=== PATIENT | male | born 1940 | race Caucasian/White ===

== ENCOUNTER → 2017-05-06 | Outpatient (REF) ==
[~2017-05-06] MED LIST: AMBIEN5 MG PO; ASPIRIN E.C. 8181 MG PO; ATENOLOL PO; ATENOLOL50 MG PO; BUPROPRION PO; CRESTOR PO; NORCO 325 MG-51 TAB PO; OSTEO-BI-FLEX 21 TAB PO; PROMETHAZINE12.5 M5 PO; SAW PALMETTO450 MG PO; ULTRAM 50MG TAB50 MG PO
[2017-05-06 19:51] LABS: THYROID STIMULATING HORMONE 4.26 uIU/mL (0.465-4.680)
[2017-05-06 21:45] LABS: PSA-TOTAL 2.78 ng/mL (0-4)
== END ==
LOC: ZLAB.WCH 18:17
PROVIDERS: Internal Medicine
DX: Z01.89 Encounter for other specified special examinations (principal)
CPT/HCPCS: G0103

== ENCOUNTER → 2017-10-28 | Outpatient (REF) | LOC: ZLAB.WCH 18:03 | DX: Z01.89 Encounter for other specified special examinations (principal) ==

== ENCOUNTER → 2017-11-28 | Outpatient (REF) ==
[2017-11-28 18:43] LABS: IRON,SERUM 11 ug/dL (35-150)
[2017-11-28 18:52] LABS: TOTAL IRON BINDING CAPACITY 258 ug/dL (261-462)
[2017-11-28 19:18] LABS: FERRITIN 57 ng/mL (18-464)
== END ==
LOC: ZLAB.WCH 18:20
PROVIDERS: Internal Medicine
DX: Z01.89 Encounter for other specified special examinations (principal)

== ENCOUNTER → 2017-12-29 | Outpatient (REF) ==
[2017-12-29 19:01] LABS: IRON,SERUM 52 ug/dL (35-150)
[2017-12-29 19:11] LABS: TOTAL IRON BINDING CAPACITY 216 ug/dL (261-462)
[2017-12-29 19:37] LABS: FERRITIN 53 ng/mL (18-464)
== END ==
LOC: ZLAB.WCH 18:30
PROVIDERS: Internal Medicine
DX: Z01.89 Encounter for other specified special examinations (principal)

== ENCOUNTER → 2018-02-27 | Outpatient (REF) | LOC: ZLAB.WCH 17:58 | DX: Z01.89 Encounter for other specified special examinations (principal) ==

== ENCOUNTER → 2018-04-27 | Outpatient (CLI) | payer MEDICARE | LOC: COL.RAD 09:04 | DX: R93.0 Abnormal findings on diagnostic imaging of skull and head, not elsewhere classified (principal); M46.96 Unspecified inflammatory spondylopathy, lumbar region; M41.84 Other forms of scoliosis, thoracic region; M16.0 Bilateral primary osteoarthritis of hip; M19.012 Primary osteoarthritis, left shoulder; M19.011 Primary osteoarthritis, right shoulder ==

== ENCOUNTER 2018-05-19 15:25 | Inpatient (IN) | payer MEDICARE ==
[~2018-05-19 15:25] MED LIST changes: -CALCITRIOL; -DEMADEX 20MG20 M1 PO; -PRILOSEC10 MG; -TYLENOL 500MG500 MG PO
[2018-05-19] MEDS ORDERED: CALCITRIOL (16:00)
[2018-05-19] MEDS ORDERED: DEMADEX 20MG20 M1 PO (16:01)
[2018-05-19] MEDS ORDERED: TYLENOL 500MG500 MG PO (16:03)
[2018-05-19] MEDS ORDERED: PRILOSEC10 MG (16:04)
[2018-05-19 16:47] LABS: BASO % 0.3 % (0.0-2.0); EOS # 0.3 (0.0-0.7); EOS % 3.6 % (0-4.0); GRAN # 5.4 (1.4-6.5); GRAN % 59.5 % (42.2-75.2); HEMOGLOBIN 10.7 g/dl (13.5-18.0); LYMPH # 2.2 (1.2-3.4); LYMPH % 24.1 % (20.0-51.0); MEAN CELL VOLUME 92 fl (80.0-100.0); MEAN CORPUSCULAR HEMOGLOBIN 29 pg (27.0-31.0); MEAN CORPUSCULAR HGB CONC 32 g/dl (33.0-37.0); MEAN PLATELET VOLUME 11.1 fl (7.4-10.4); MONO # 1.1 (0.1-0.6); MONO % 12.3 % (1.7-9.3); PLATELET COUNT 365 K/mm3 (130-400); RED BLOOD COUNT 3.66 M/mm3 (4.20-5.60); REDCELL DISTRIBUTION WIDTH-CV 15.5 % (11.5-14.5)
[2018-05-19 16:48] LABS: HEMATOCRIT 33.5 % (42.0-52.0)
[2018-05-19 16:54] LABS: ALBUMIN 2.6 gm/dL (3.5-5.0); BILIRUBIN,TOTAL 0.2 mg/dL (0.0-1.0); TOTAL PROTEIN 5.7 gm/dL (6.4-8.2)
[2018-05-19 17:11] LABS: FRACTIONAL EXCRETION OF NA+ 12.3 %
[2018-05-19 17:19] LABS: PH 6 (5-8); SQUAMOUS EPITHELIAL None Seen /hpf; URINE APPEARANCE Clear; URINE BACTERIA None Seen /hpf; URINE BILIRUBIN Negative (NEGATIVE); URINE BLOOD Negative (NEGATIVE); URINE COLOR Yellow; URINE GLUCOSE 1+ (NEGATIVE); URINE KETONE Negative (NEGATIVE); URINE LEUKOCYTE ESTERASE Negative (NEGATIVE); URINE NITRATE Negative (NEGATIVE); URINE PROTEIN(semi-quant) 3+ (NEGATIVE); URINE RBC 0-2 /hpf; URINE UROBILINOGEN Negative (NEGATIVE); URINE WBC 0-2 /hpf
[2018-05-19 17:22] LABS: URINE PROTEIN:CREAT RATIO 19.95 (0.00-0.14)
[2018-05-19 17:54] LABS: COLLECTION METHOD CLEAN CATCH
[2018-05-19 17:58] VITALS: BP 130/69; PULSE 65; TEMP 97.4
[2018-05-19 19:25] VITALS: BP 102/54; PULSE 68; TEMP 98.5
[2018-05-19 23:33] VITALS: BP 129/64; PULSE 64; TEMP 98.2
[2018-05-20 04:11] VITALS: BP 114/63; PULSE 65; TEMP 97.9
[2018-05-20 07:34] LABS: HEMOGLOBIN 10.1 g/dl (13.5-18.0); MEAN CELL VOLUME 90 fl (80.0-100.0); MEAN CORPUSCULAR HEMOGLOBIN 30 pg (27.0-31.0); MEAN CORPUSCULAR HGB CONC 33 g/dl (33.0-37.0); MEAN PLATELET VOLUME 11.3 fl (7.4-10.4); PLATELET COUNT 324 K/mm3 (130-400); RED BLOOD COUNT 3.42 M/mm3 (4.20-5.60); REDCELL DISTRIBUTION WIDTH-CV 15.9 % (11.5-14.5)
[2018-05-20 07:37] LABS: HEMATOCRIT 30.9 % (42.0-52.0)
[2018-05-20 07:39] LABS: INR 1.1 (0.8-3.0)
[2018-05-20 07:44] LABS: CALCIUM 7.7 mg/dL (8.4-10.2); POTASSIUM 3.7 mmol/L (3.4-5.0)
[2018-05-20 07:48] LABS: CREATININE, serum 7.6 mg/dL (0.66-1.25)
[2018-05-20 07:52] VITALS: BP 124/68; PULSE 62; TEMP 97.6
[2018-05-20 11:44] VITALS: BP 124/65; PULSE 63; TEMP 98.1
[2018-05-20 17:29] VITALS: BP 132/67; PULSE 64; TEMP 98.4
[2018-05-20 23:47] VITALS: BP 123/66; PULSE 66; TEMP 97.6
[2018-05-21] VITALS (12 sets, daily range): BP systolic 120–153; BP diastolic 67–87; PULSE 63–80; TEMP 97.6–98.9
[2018-05-21 06:38] LABS: HEMOGLOBIN 10.9 g/dl (13.5-18.0); MEAN CELL VOLUME 91 fl (80.0-100.0); MEAN CORPUSCULAR HEMOGLOBIN 30 pg (27.0-31.0); MEAN CORPUSCULAR HGB CONC 32 g/dl (33.0-37.0); MEAN PLATELET VOLUME 11.6 fl (7.4-10.4); PLATELET COUNT 327 K/mm3 (130-400); RED BLOOD COUNT 3.69 M/mm3 (4.20-5.60); REDCELL DISTRIBUTION WIDTH-CV 15.9 % (11.5-14.5)
[2018-05-21 06:39] LABS: HEMATOCRIT 33.6 % (42.0-52.0)
[2018-05-21 06:56] LABS: ALBUMIN 2.4 gm/dL (3.5-5.0); CALCIUM 7.8 mg/dL (8.4-10.2); POTASSIUM 3.9 mmol/L (3.4-5.0)
[2018-05-21 06:57] LABS: CREATININE, serum 7.26 mg/dL (0.66-1.25)
[2018-05-22 04:02] VITALS: BP 124/67; PULSE 63; TEMP 98.1
[2018-05-22 07:31] VITALS: BP 127/62; PULSE 62; TEMP 97.6
[2018-05-22 11:46] VITALS: BP 155/84; PULSE 62; TEMP 97.9
[2018-05-22] MEDS ORDERED: CALCITRIOL PO (12:35)
[2018-05-22] MEDS ORDERED: ZYLOPRIM 100MG100 MG PO (12:37)
[2018-05-22] MEDS ORDERED: DESYREL 50MG50 MG PO (12:38)
[2018-05-22] MEDS ORDERED: DEMADEX 20MG20 M1 PO (12:40)
[2018-05-22] MEDS ORDERED: FLOMAX 0.40.4 MG/CAP PO (12:41)
[2018-05-22 19:04] LABS: CK total - for Isoenzymes 138 U/L (39 - 308)
== END 2018-05-22 13:52 | disposition home or self-care (01) | DRG 683 ==
LOC: MEDICAL 15:25
PROVIDERS: Internal Medicine Nephrology
PROC: 0TB13ZX Excision of Left Kidney, Percutaneous Approach, Diagnostic (ICD-10-PCS; principal; 2018-05-21)
DX: N17.9 Acute kidney failure, unspecified (principal); C90.00 Multiple myeloma not having achieved remission; E85.81 Light chain (AL) amyloidosis; I25.10 Atherosclerotic heart disease of native coronary artery without angina pectoris; I12.9 Hypertensive chronic kidney disease with stage 1 through stage 4 chronic kidney disease, or unspecified chronic kidney disease; N18.3 Chronic kidney disease, stage 3 (moderate); F31.9 Bipolar disorder, unspecified; Z87.891 Personal history of nicotine dependence; M10.9 Gout, unspecified; M1A.9XX0 Chronic gout, unspecified, without tophus (tophi)
CPT/HCPCS: J7030

== ENCOUNTER → 2018-05-19 | Outpatient (REF) ==
[~2018-05-19] MED LIST changes: -BUPROPRION PO; +CALCITRIOL; +DEMADEX 20MG20 M1 PO; +PRILOSEC10 MG; +TYLENOL 500MG500 MG PO; +WELLBUTRIN 100100 MG PO
== END ==
LOC: ZLAB.WCH 14:49
DX: Z01.89 Encounter for other specified special examinations (principal)

== ENCOUNTER → 2018-05-26 | Outpatient (REF) ==
[~2018-05-26] MED LIST changes: +CALCITRIOL; +CALCITRIOL PO; +DECADRON 4MG TAB4 MG PO; +DEMADEX 20MG20 M1 PO; +DESYREL 50MG50 MG PO; +FLOMAX 0.40.4 MG/CAP PO; +PRILOSEC10 MG PO; +SEROQUEL50 MG PO; +TYLENOL 500MG500 MG PO; -WELLBUTRIN 100100 MG PO; +WELLBUTRIN SR200 MG PO; +ZOVIRAX 200MG200 MG PO; +ZYLOPRIM 100MG100 MG PO
== END ==
LOC: ZLAB.WCH 15:59
DX: Z01.89 Encounter for other specified special examinations (principal)

== ENCOUNTER → 2018-06-04 | Outpatient (REF) | LOC: ZLAB.WCH 18:05 | DX: Z01.89 Encounter for other specified special examinations (principal) ==

== ENCOUNTER → 2018-06-16 | Outpatient (REF) | LOC: ZLAB.WCH 17:48 | DX: Z01.89 Encounter for other specified special examinations (principal) ==

== ENCOUNTER → 2018-06-22 | Outpatient (CLI) | payer MEDICARE | LOC: COL.VAS 11:59 | DX: N18.6 End stage renal disease (principal); Z97.8 Presence of other specified devices | CPT/HCPCS: G0365 ==

== ENCOUNTER → 2018-06-23 | Outpatient (REF) | LOC: ZLAB.WCH 14:28 | DX: Z01.89 Encounter for other specified special examinations (principal) ==

== ENCOUNTER → 2018-06-30 | Outpatient (REF) ==
[2018-06-30 16:15] LABS: IRON,SERUM 49 ug/dL (35-150); LACTATE DEHYDROGENASE 549 U/L (313-618)
[2018-06-30 16:25] LABS: TOTAL IRON BINDING CAPACITY 242 ug/dL (261-462)
[2018-06-30 16:51] LABS: FERRITIN 277 ng/mL (18-464)
== END ==
LOC: ZLAB.WCH 15:56
PROVIDERS: Internal Medicine
DX: Z01.89 Encounter for other specified special examinations (principal)

== ENCOUNTER → 2018-07-07 | Outpatient (REF) | LOC: ZLAB.WCH 13:02 | DX: Z01.89 Encounter for other specified special examinations (principal) ==

== ENCOUNTER → 2018-07-15 | Outpatient (REF) | LOC: ZLAB.WCH 15:52 | DX: Z01.89 Encounter for other specified special examinations (principal) ==

== ENCOUNTER 2018-07-30 07:58 | Inpatient (IN) | payer MEDICARE ==
[2018-07-30] VITALS (228 sets, daily range): BP systolic 86–131; BP diastolic 52–76; PULSE 83–101; TEMP 97.3–98.9; O2SAT 86–100
[~2018-07-30] VITALS: Ht 172.7 cm; Wt 77.3 kg
[~2018-07-30 07:58] MED LIST changes: -CRESTOR PO; +CRESTOR20 MG PO
[2018-07-30] MEDS ORDERED: FLAGYL500 MG PO (08:24)
[2018-07-30] MEDS ORDERED: DEPO-TESTOS100 MG/ML IM (08:26)
[2018-07-30] MEDS ORDERED: CALCITRIOL PO (08:29)
[2018-07-30 10:30] LABS: BASO % 0.1 % (0.0-2.0); EOS % 0.1 % (0-4.0); GRAN # 12.1 (1.4-6.5); GRAN % 87.3 % (42.2-75.2); LYMPH # 0.6 (1.2-3.4); LYMPH % 4.3 % (20.0-51.0); MEAN CELL VOLUME 104 fl (80.0-100.0); MEAN CORPUSCULAR HGB CONC 32 g/dl (33.0-37.0); MEAN PLATELET VOLUME 11.1 fl (7.4-10.4); MONO # 1.1 (0.1-0.6); MONO % 7.7 % (1.7-9.3); PLATELET COUNT 235 K/mm3 (130-400); RED BLOOD COUNT 2.22 M/mm3 (4.20-5.60); REDCELL DISTRIBUTION WIDTH-CV 18.2 % (11.5-14.5)
[2018-07-30 10:33] LABS: HEMOGLOBIN 7.3 g/dl (13.5-18.0); MEAN CORPUSCULAR HEMOGLOBIN 33 pg (27.0-31.0)
[2018-07-30 10:45] LABS: ALBUMIN 2.4 gm/dL (3.5-5.0); BILIRUBIN,TOTAL 0.3 mg/dL (0.0-1.0); CALCIUM 6.8 mg/dL (8.4-10.2); TOTAL PROTEIN 4.9 gm/dL (6.4-8.2)
[2018-07-30 10:48] LABS: CREATININE, serum 5.12 mg/dL (0.66-1.25)
[2018-07-30 17:50] LABS: HEMATOCRIT 25.7 % (42.0-52.0); HEMOGLOBIN 8.4 g/dl (13.5-18.0)
[2018-07-30 19:39] LABS: ALBUMIN 2.4 gm/dL (3.5-5.0); BILIRUBIN,TOTAL 0.3 mg/dL (0.0-1.0); CALCIUM 6.9 mg/dL (8.4-10.2); POTASSIUM 4.4 mmol/L (3.4-5.0); TOTAL PROTEIN 4.9 gm/dL (6.4-8.2)
[2018-07-30 19:46] LABS: CREATININE, serum 5.64 mg/dL (0.66-1.25)
[2018-07-31] VITALS (361 sets, daily range): BP systolic 85–111; BP diastolic 44–70; PULSE 74–90; TEMP 98–99.3; O2SAT 75–100
[2018-07-31 02:19] LABS: HEMOGLOBIN 8.7 g/dl (13.5-18.0)
[2018-07-31 13:57] LABS: BASO % 0.3 % (0.0-2.0); EOS # 0.1 (0.0-0.7); EOS % 0.7 % (0-4.0); GRAN # 8.9 (1.4-6.5); GRAN % 83.6 % (42.2-75.2); LYMPH # 0.7 (1.2-3.4); LYMPH % 6.7 % (20.0-51.0); MEAN CELL VOLUME 100 fl (80.0-100.0); MEAN CORPUSCULAR HGB CONC 32 g/dl (33.0-37.0); MEAN PLATELET VOLUME 10.8 fl (7.4-10.4); MONO # 0.9 (0.1-0.6); MONO % 8.2 % (1.7-9.3); PLATELET COUNT 211 K/mm3 (130-400); RED BLOOD COUNT 2.21 M/mm3 (4.20-5.60); REDCELL DISTRIBUTION WIDTH-CV 19.6 % (11.5-14.5)
[2018-07-31 14:00] LABS: HEMOGLOBIN 7.1 g/dl (13.5-18.0); MEAN CORPUSCULAR HEMOGLOBIN 32 pg (27.0-31.0)
[2018-07-31 14:07] LABS: ALBUMIN 2.1 gm/dL (3.5-5.0); BILIRUBIN,TOTAL 0.3 mg/dL (0.0-1.0); CREATININE, serum 3.37 mg/dL (0.66-1.25); POTASSIUM 4.4 mmol/L (3.4-5.0); TOTAL PROTEIN 4.4 gm/dL (6.4-8.2)
[2018-07-31 17:53] LABS: HEMATOCRIT 19.8 % (42.0-52.0); HEMOGLOBIN 6.5 g/dl (13.5-18.0)
[2018-08-01] VITALS (573 sets, daily range): BP systolic 77–109; BP diastolic 49–66; PULSE 72–81; TEMP 98.1–98.8; O2SAT 80–100
[2018-08-01 06:00] LABS: BASO % 0.3 % (0.0-2.0); EOS # 0.2 (0.0-0.7); EOS % 1.7 % (0-4.0); GRAN # 7.6 (1.4-6.5); GRAN % 76.8 % (42.2-75.2); LYMPH % 10.4 % (20.0-51.0); MEAN CELL VOLUME 97 fl (80.0-100.0); MEAN CORPUSCULAR HGB CONC 32 g/dl (33.0-37.0); MEAN PLATELET VOLUME 10.9 fl (7.4-10.4); MONO % 10.5 % (1.7-9.3); PLATELET COUNT 247 K/mm3 (130-400); REDCELL DISTRIBUTION WIDTH-CV 18.2 % (11.5-14.5)
[2018-08-01 06:08] LABS: HEMATOCRIT 25.3 % (42.0-52.0); HEMOGLOBIN 8.1 g/dl (13.5-18.0); MEAN CORPUSCULAR HEMOGLOBIN 31 pg (27.0-31.0)
[2018-08-01 06:13] LABS: ALBUMIN 2.1 gm/dL (3.5-5.0); BILIRUBIN,TOTAL 0.3 mg/dL (0.0-1.0); CALCIUM 7.1 mg/dL (8.4-10.2); POTASSIUM 4.1 mmol/L (3.4-5.0); TOTAL PROTEIN 4.4 gm/dL (6.4-8.2)
[2018-08-01 06:18] LABS: INR 1.2 (0.8-3.0); PROTHROMBIN TIME 13.2 SECONDS (9.7-12.8)
[2018-08-01 06:42] LABS: CREATININE, serum 4.57 mg/dL (0.66-1.25)
[2018-08-01 06:47] LABS: PH 7 (5-8); SQUAMOUS EPITHELIAL 0-2 /hpf; URINE APPEARANCE Clear; URINE BACTERIA Rare /hpf; URINE BILIRUBIN Negative (NEGATIVE); URINE BLOOD Negative (NEGATIVE); URINE COLOR Yellow; URINE GLUCOSE Negative (NEGATIVE); URINE KETONE Negative (NEGATIVE); URINE LEUKOCYTE ESTERASE Negative (NEGATIVE); URINE NITRATE Negative (NEGATIVE); URINE PROTEIN(semi-quant) 3+ (NEGATIVE); URINE RBC 0-2 /hpf; URINE UROBILINOGEN Negative (NEGATIVE)
[2018-08-01 07:00] LABS: COLLECTION METHOD CLEAN CATCH
[2018-08-01 12:51] LABS: HEMOGLOBIN 7.7 g/dl (13.5-18.0)
[2018-08-01 21:22] LABS: HEMATOCRIT 22.4 % (42.0-52.0); HEMOGLOBIN 7.3 g/dl (13.5-18.0)
[2018-08-02] VITALS (937 sets, daily range): BP systolic 94–133; BP diastolic 55–82; PULSE 77–103; TEMP 97.5–99.1; O2SAT 78–100
[2018-08-02 05:21] LABS: BASO % 0.2 % (0.0-2.0); EOS # 0.2 (0.0-0.7); EOS % 2.4 % (0-4.0); GRAN # 6.6 (1.4-6.5); LYMPH # 0.9 (1.2-3.4); LYMPH % 9.7 % (20.0-51.0); MEAN CELL VOLUME 101 fl (80.0-100.0); MEAN CORPUSCULAR HGB CONC 32 g/dl (33.0-37.0); MEAN PLATELET VOLUME 10.4 fl (7.4-10.4); MONO # 1.1 (0.1-0.6); MONO % 12.2 % (1.7-9.3); PLATELET COUNT 268 K/mm3 (130-400); RED BLOOD COUNT 1.98 M/mm3 (4.20-5.60); REDCELL DISTRIBUTION WIDTH-CV 17.6 % (11.5-14.5)
[2018-08-02 05:24] LABS: HEMOGLOBIN 6.3 g/dl (13.5-18.0); MEAN CORPUSCULAR HEMOGLOBIN 32 pg (27.0-31.0)
[2018-08-02 05:35] LABS: ALBUMIN 1.9 gm/dL (3.5-5.0); BILIRUBIN,TOTAL 0.2 mg/dL (0.0-1.0); POTASSIUM 4.7 mmol/L (3.4-5.0); TOTAL PROTEIN 4.1 gm/dL (6.4-8.2)
[2018-08-02 05:37] LABS: CREATININE, serum 5.3 mg/dL (0.66-1.25)
[2018-08-02 16:07] LABS: HEMATOCRIT 25.7 % (42.0-52.0); HEMOGLOBIN 8.2 g/dl (13.5-18.0)
[2018-08-02 21:17] LABS: HEMOGLOBIN 7.6 g/dl (13.5-18.0)
[2018-08-03] VITALS (616 sets, daily range): BP systolic 95–122; BP diastolic 55–75; PULSE 76–93; TEMP 98.1–99.1; O2SAT 87–100
[2018-08-03 05:41] LABS: BASO % 0.3 % (0.0-2.0); EOS # 0.1 (0.0-0.7); EOS % 1.2 % (0-4.0); GRAN # 6.5 (1.4-6.5); GRAN % 73.7 % (42.2-75.2); LYMPH # 1.1 (1.2-3.4); MEAN CELL VOLUME 97 fl (80.0-100.0); MEAN CORPUSCULAR HGB CONC 33 g/dl (33.0-37.0); MEAN PLATELET VOLUME 9.8 fl (7.4-10.4); MONO # 1.1 (0.1-0.6); PLATELET COUNT 279 K/mm3 (130-400); RED BLOOD COUNT 2.24 M/mm3 (4.20-5.60)
[2018-08-03 05:45] LABS: HEMATOCRIT 21.7 % (42.0-52.0); HEMOGLOBIN 7.1 g/dl (13.5-18.0); MEAN CORPUSCULAR HEMOGLOBIN 32 pg (27.0-31.0)
[2018-08-03 06:00] LABS: ALBUMIN 1.9 gm/dL (3.5-5.0); BILIRUBIN,TOTAL 0.2 mg/dL (0.0-1.0); CALCIUM 7.4 mg/dL (8.4-10.2); POTASSIUM 4.6 mmol/L (3.4-5.0); TOTAL PROTEIN 4.2 gm/dL (6.4-8.2)
[2018-08-03 06:01] LABS: CREATININE, serum 6.14 mg/dL (0.66-1.25)
[2018-08-03 13:35] LABS: HEMATOCRIT 22.5 % (42.0-52.0); HEMOGLOBIN 7.3 g/dl (13.5-18.0)
[2018-08-03 21:23] LABS: HEMATOCRIT 20.6 % (42.0-52.0); HEMOGLOBIN 6.8 g/dl (13.5-18.0)
[2018-08-04] VITALS (413 sets, daily range): BP systolic 97–123; BP diastolic 61–78; PULSE 69–84; TEMP 97.7–99; O2SAT 83–100
[2018-08-04 05:43] LABS: BASO % 0.5 % (0.0-2.0); EOS # 0.3 (0.0-0.7); EOS % 3.2 % (0-4.0); GRAN # 6.4 (1.4-6.5); GRAN % 72.8 % (42.2-75.2); LYMPH # 0.9 (1.2-3.4); LYMPH % 10.3 % (20.0-51.0); MEAN CELL VOLUME 94 fl (80.0-100.0); MEAN CORPUSCULAR HGB CONC 33 g/dl (33.0-37.0); MEAN PLATELET VOLUME 10.1 fl (7.4-10.4); MONO # 1.1 (0.1-0.6); MONO % 12.4 % (1.7-9.3); PLATELET COUNT 337 K/mm3 (130-400); RED BLOOD COUNT 2.61 M/mm3 (4.20-5.60)
[2018-08-04 06:06] LABS: HEMATOCRIT 24.6 % (42.0-52.0); HEMOGLOBIN 8.1 g/dl (13.5-18.0); MEAN CORPUSCULAR HEMOGLOBIN 31 pg (27.0-31.0)
[2018-08-04 13:52] LABS: HEMATOCRIT 28.4 % (42.0-52.0); HEMOGLOBIN 9.2 g/dl (13.5-18.0)
[2018-08-04 21:18] LABS: HEMATOCRIT 25.3 % (42.0-52.0); HEMOGLOBIN 8.1 g/dl (13.5-18.0)
[2018-08-05] VITALS (7 sets, daily range): BP systolic 101–128; BP diastolic 44–82; PULSE 71–84; TEMP 97.6–98.8
[2018-08-05 05:52] LABS: HEMATOCRIT 26.4 % (42.0-52.0); HEMOGLOBIN 8.5 g/dl (13.5-18.0)
[2018-08-05 12:20] LABS: HEMATOCRIT 26.6 % (42.0-52.0); HEMOGLOBIN 8.7 g/dl (13.5-18.0)
[2018-08-06 03:46] VITALS: BP 132/73; PULSE 79; TEMP 98
[2018-08-06 07:48] VITALS: BP 123/66; PULSE 77; TEMP 98
[2018-08-06 08:04] LABS: MEAN CELL VOLUME 97 fl (80.0-100.0); MEAN CORPUSCULAR HGB CONC 32 g/dl (33.0-37.0); MEAN PLATELET VOLUME 10.2 fl (7.4-10.4); RED BLOOD COUNT 2.63 M/mm3 (4.20-5.60); REDCELL DISTRIBUTION WIDTH-CV 17.2 % (11.5-14.5)
[2018-08-06 08:11] LABS: HEMATOCRIT 25.6 % (42.0-52.0); HEMOGLOBIN 8.1 g/dl (13.5-18.0); MEAN CORPUSCULAR HEMOGLOBIN 31 pg (27.0-31.0); PLATELET COUNT 449 K/mm3 (130-400)
[2018-08-06 08:12] LABS: CALCIUM 7.7 mg/dL (8.4-10.2); POTASSIUM 3.7 mmol/L (3.4-5.0)
[2018-08-06 08:32] LABS: CREATININE, serum 4.47 mg/dL (0.66-1.25)
[2018-08-06 10:14] LABS: BAND 2 % (0-10); LYMPHOCYTE 13 % (20.0-51.0); NEUTROPHILS 79 % (42.0-75.2)
[2018-08-06 10:16] LABS: HYPOCHROMIA 1+; PLATELET ESTIMATE NORMAL (NORMAL)
[2018-08-06 12:17] VITALS: BP 107/53; PULSE 81; TEMP 98.1
[2018-08-06 16:18] VITALS: BP 123/61; PULSE 86; TEMP 98.5
[2018-08-06 20:44] VITALS: BP 130/78; PULSE 78; TEMP 98.2
[2018-08-07 01:47] VITALS: BP 120/66; PULSE 77; TEMP 98.6
[2018-08-07 04:40] VITALS: BP 121/58; PULSE 70; TEMP 98.6
[2018-08-07 06:07] LABS: CALCIUM 7.4 mg/dL (8.4-10.2); POTASSIUM 3.5 mmol/L (3.4-5.0)
[2018-08-07 06:10] LABS: MEAN CELL VOLUME 98 fl (80.0-100.0); MEAN CORPUSCULAR HGB CONC 32 g/dl (33.0-37.0); MEAN PLATELET VOLUME 9.9 fl (7.4-10.4); PLATELET COUNT 489 K/mm3 (130-400); RED BLOOD COUNT 2.51 M/mm3 (4.20-5.60); REDCELL DISTRIBUTION WIDTH-CV 17.2 % (11.5-14.5)
[2018-08-07 06:13] LABS: CREATININE, serum 5.38 mg/dL (0.66-1.25)
[2018-08-07 06:33] LABS: HEMATOCRIT 24.6 % (42.0-52.0); HEMOGLOBIN 7.8 g/dl (13.5-18.0); MEAN CORPUSCULAR HEMOGLOBIN 31 pg (27.0-31.0)
[2018-08-07 07:25] LABS: ANISOCYTOSIS 1+; BAND 1 % (0-10); EOSINOPHIL 1 % (0-4); LYMPHOCYTE 12 % (20.0-51.0); NEUTROPHILS 77 % (42.0-75.2); PLATELET ESTIMATE INCREASED (NORMAL); TOXIC GRANULATION PRESENT
[2018-08-07] MEDS ORDERED: B-121000 MCG PO (07:43)
[2018-08-07] MEDS ORDERED: FOLIC ACID 11 MG/TA1 PO (07:43)
[2018-08-07 08:38] VITALS: BP 116/64; PULSE 85; TEMP 98.7
[2018-08-07] MEDS ORDERED: PROTONIX 40MG T40 MG PO (09:18)
[2018-08-07] MEDS ORDERED: FERROUS SU325 MG/TAB PO (09:19)
== END 2018-08-07 13:03 | disposition home or self-care (01) | DRG 377 ==
LOC: ICU 07:58 → MEDICAL 08-05 14:16
PROVIDERS: Hospitalist; Internal Medicine; Internal Medicine Nephrology; Nurse Practitioner Family; Physician Assistant; Surgery
PROC: 0W3P8ZZ Control Bleeding in Gastrointestinal Tract, Via Natural or Artificial Opening Endoscopic (ICD-10-PCS; 2018-07-31)
PROC: 0DJD8ZZ Inspection of Lower Intestinal Tract, Via Natural or Artificial Opening Endoscopic (ICD-10-PCS; 2018-07-31)
PROC: 5A1D70Z Performance of Urinary Filtration, Intermittent, Less than 6 Hours Per Day (ICD-10-PCS; principal; 2018-07-31 11:30)
PROC: 0W3P8ZZ Control Bleeding in Gastrointestinal Tract, Via Natural or Artificial Opening Endoscopic (ICD-10-PCS; 2018-08-02)
PROC: 5A1D70Z Performance of Urinary Filtration, Intermittent, Less than 6 Hours Per Day (ICD-10-PCS; 2018-08-03)
PROC: 5A1D70Z Performance of Urinary Filtration, Intermittent, Less than 6 Hours Per Day (ICD-10-PCS; 2018-08-05)
DX: K31.82 Dieulafoy lesion (hemorrhagic) of stomach and duodenum (principal); N18.6 End stage renal disease; K26.4 Chronic or unspecified duodenal ulcer with hemorrhage; C90.00 Multiple myeloma not having achieved remission; I12.0 Hypertensive chronic kidney disease with stage 5 chronic kidney disease or end stage renal disease; D62 Acute posthemorrhagic anemia; K57.32 Diverticulitis of large intestine without perforation or abscess without bleeding; Z66 Do not resuscitate; I25.10 Atherosclerotic heart disease of native coronary artery without angina pectoris; E78.5 Hyperlipidemia, unspecified; Z87.891 Personal history of nicotine dependence; Z99.2 Dependence on renal dialysis; K44.9 Diaphragmatic hernia without obstruction or gangrene
CPT/HCPCS: 99223-AI; 99232-AI; 99233-AI; 99239; C9113; J0882; J1956; J2250; J2370; J2405; J2597; J2704; J2916; J7050; P9016

== ENCOUNTER → 2018-08-10 | Outpatient (REF) ==
[~2018-08-10] MED LIST changes: +B-121000 MCG PO; +DEPO-TESTOS100 MG/ML IM; +FERROUS SU325 MG/TAB PO; +FLAGYL500 MG PO; +FOLIC ACID 11 MG/TA1 PO; +PROTONIX 40MG T40 MG PO
== END ==
LOC: ZLAB.WCH 16:11
DX: Z01.89 Encounter for other specified special examinations (principal)

== ENCOUNTER → 2020-03-07 | Outpatient (CLI) | payer MEDICARE | LOC: ZCOL.LAB 14:34 | DX: Z11.59 Encounter for screening for other viral diseases (principal); C90.00 Multiple myeloma not having achieved remission; N18.6 End stage renal disease ==

== ENCOUNTER 2021-09-21 12:15 | Outpatient (CLI) | payer MEDICARE ==
[~2021-09-21] VITALS: Ht 172.7 cm; Wt 71.3 kg
[2021-09-21] VITALS (8 sets, daily range): BP systolic 124–149; BP diastolic 68–101; PULSE 62–71; TEMP 98.1
[~2021-09-21 12:15] MED LIST changes: +SEROQUEL 2525 MG/TAB PO; -SEROQUEL50 MG PO
[2021-09-21] MEDS ORDERED: FOLIC ACID0.8 MG PO (13:24)
[2021-09-21] MEDS ORDERED: VELCADE3.5 MG IM (13:25)
--- NOTE | 2021-09-21 17:24 | NUR ---
Pt escorted to exit with daughter at this time. Pt has done fine during his recovery. Pt came back to express unit approx 1515, and bs report was received from Rafa PINEDA. Pt has been awake and alert, has been able to eat dinner, has ambulated to bathroom with steady gait. No signs of bleeding at pucture site. bandaid is clean dry and intact. I reviewed dc instructions r/t fistulogram and moderate sedation with pt, he denies any questions.
== END 2021-09-21 17:24 | disposition home or self-care (01) ==
LOC: COL.CAR 12:15
DX: T82.898A Other specified complication of vascular prosthetic devices, implants and grafts, initial encounter (principal); N18.6 End stage renal disease; Z99.2 Dependence on renal dialysis; Z90.89 Acquired absence of other organs; Z79.899 Other long term (current) drug therapy; Z87.891 Personal history of nicotine dependence
CPT/HCPCS: J1644; J2250; J3010; Q9967

== ENCOUNTER → 2021-11-08 | Outpatient (CLI) | payer MEDICARE ==
[2021-11-08] VITALS (10 sets, daily range): BP systolic 110–127; BP diastolic 61–88; PULSE 63–72; TEMP 98.3
[~2021-11-08] VITALS: Ht 170.2 cm; Wt 71.0 kg
[~2021-11-08] MED LIST changes: +FOLIC ACID0.8 MG PO; +VELCADE3.5 MG IM
== END ==
LOC: COL.RAD 11:44
DX: C90.00 Multiple myeloma not having achieved remission (principal); M89.9 Disorder of bone, unspecified

== ENCOUNTER 2021-12-10 07:46 | Outpatient (CLI) | payer MEDICARE ==
[~2021-12-10] VITALS: Ht 174 cm; Wt 68.0 kg
[2021-12-10] VITALS (11 sets, daily range): BP systolic 128–150; BP diastolic 68–101; PULSE 61–70; TEMP 98.5
[~2021-12-10 07:46] MED LIST changes: +CEPHALEXIN500 M1 PO; +KEPPRA 500MG500 MG PO; +REVLIMID5 MG PO
[2021-12-10] MEDS ORDERED: PHARMASSURE ZIN50 MG PO (09:06)
--- NOTE | 2021-12-10 09:55 | NUR ---
Pt to procedure,report to Cosmo Hernández.
--- NOTE | 2021-12-10 10:26 | NUR ---
SEE MERGE FOR ALL MEDICATION ADMINISTRATION TIMES/DOSAGES AND INTRA/POST PROCEDURE SEDATION ASSESSMENTS.
--- NOTE | 2021-12-10 13:29 | NUR ---
Discharge completed by this nurse under Dr vela's orders sitting next to me.
== END 2021-12-10 17:37 ==
LOC: COL.CAR 07:46
DX: T82.898A Other specified complication of vascular prosthetic devices, implants and grafts, initial encounter (principal); N16 Renal tubulo-interstitial disorders in diseases classified elsewhere; Z99.2 Dependence on renal dialysis; Z90.89 Acquired absence of other organs; Z79.899 Other long term (current) drug therapy; Z87.891 Personal history of nicotine dependence
CPT/HCPCS: J1644; Q9967

== ENCOUNTER 2022-01-17 10:00 | Inpatient (IN) | payer MEDICARE ==
[~2022-01-17] VITALS: Ht 172.7 cm; Wt 80.7 kg
[~2022-01-17 10:00] MED LIST changes: +PHARMASSURE ZIN50 MG PO
[2022-01-17 10:55] LABS: INR 1.1 (0.8-3.0); PROTHROMBIN TIME 11.8 SECONDS (9.7-12.8)
[2022-01-17 10:56] LABS: BASO % 0.4 % (0.0-2.0); EOS # 0.1 K/mm3 (0.0-0.7); EOS % 1.4 % (0.0-4.0); GRAN # 3.7 K/mm3 (1.4-6.5); GRAN % 76.9 % (42.2-75.2); LYMPH # 0.6 K/mm3 (1.2-3.4); LYMPH % 11.9 % (20.0-51.0); MEAN CELL VOLUME 108 fl (80.0-100.0); MEAN CORPUSCULAR HEMOGLOBIN 34 pg (27-31); MEAN CORPUSCULAR HGB CONC 32 g/dl (33.0-37.0); MEAN PLATELET VOLUME 9.8 fl (7.4-10.4); MONO # 0.5 K/mm3 (0.1-0.6); MONO % 9.2 % (1.7-9.3); PLATELET COUNT 82 K/mm3 (130-400); RED BLOOD COUNT 2.94 M/mm3 (4.20-5.60); REDCELL DISTRIBUTION WIDTH-CV 16.2 % (11.5-14.5)
[2022-01-17 10:57] LABS: HEMATOCRIT 31.6 % (42.0-52.0)
[2022-01-17 11:20] LABS: ALBUMIN 3.1 gm/dL (3.4-4.8); BILIRUBIN,TOTAL 0.6 mg/dL (0.2-1.2); C-REACTIVE PROTEIN 5.86 mg/dL (0.00-0.50); CREATININE, serum 2.36 mg/dL (0.72-1.25); POTASSIUM 3.6 mmol/L (3.5-4.5)
[2022-01-17 11:30] LABS: TROPONIN-I 0.071 ng/mL (0.00-0.033)
[2022-01-17 11:55] LABS: COLLECTION METHOD CLEAN CATCH
[2022-01-17 12:01] LABS: PH 9 (5-8); SQUAMOUS EPITHELIAL None Seen /hpf (0-10); URINE APPEARANCE Clear (CLEAR/HAZY); URINE BACTERIA None Seen /hpf (NONE SEEN); URINE BILIRUBIN Negative (NEGATIVE); URINE BLOOD Negative (NEGATIVE); URINE COLOR Yellow (YELLOW); URINE GLUCOSE Negative (NEGATIVE); URINE KETONE Negative (NEGATIVE); URINE LEUKOCYTE ESTERASE Negative (NEGATIVE); URINE NITRATE Negative (NEGATIVE); URINE PROTEIN(semi-quant) 2+ (NEGATIVE); URINE RBC None Seen /hpf (0-2); URINE UROBILINOGEN Negative (NEGATIVE)
[2022-01-17 17:17] VITALS: BP 140/64; PULSE 70; TEMP 98.2
--- NOTE | 2022-01-17 18:38 | NUR ---
Pt arrived to room 312, family at bedside. Pt is A/O x4. His breathing is even and unlabored on RA. Pt denies any pain at this time. Dressing in place to LFA fistula. POC discussed with patient and his family. No needs at this time.
[2022-01-17 19:56] VITALS: BP 134/64; PULSE 69; TEMP 97.5
[2022-01-17 23:03] VITALS: BP 124/65; PULSE 67; TEMP 98
[2022-01-18 04:07] VITALS: BP 120/61; PULSE 66; TEMP 98
--- NOTE | 2022-01-18 05:22 | NUR ---
PT HAD UNEVENTFUL NIGHT THIS SHIFT. SLEPT MAJORITY OF THE NIGHT. NO CONCERNS EXPRESSED THIS SHIFT. NPO STATUS MAINTAINED FOR MRI THIS AM. ALL NEEDS MET THIS SHIFT. CALL LIGHT WITHIN REACH.
--- NOTE | 2022-01-18 07:00 | NUR ---
PT TAKEN DOWN FOR EEG
[2022-01-18 07:21] LABS: BASO % 0.3 % (0.0-2.0); EOS # 0.1 K/mm3 (0.0-0.7); EOS % 1.6 % (0.0-4.0); GRAN # 2.7 K/mm3 (1.4-6.5); GRAN % 71.4 % (42.2-75.2); LYMPH # 0.5 K/mm3 (1.2-3.4); LYMPH % 14.4 % (20.0-51.0); MEAN CELL VOLUME 107 fl (80.0-100.0); MEAN CORPUSCULAR HGB CONC 31 g/dl (33.0-37.0); MEAN PLATELET VOLUME 10.5 fl (7.4-10.4); MONO # 0.5 K/mm3 (0.1-0.6); PLATELET COUNT 82 K/mm3 (130-400); RED BLOOD COUNT 2.78 M/mm3 (4.20-5.60); REDCELL DISTRIBUTION WIDTH-CV 15.9 % (11.5-14.5)
[2022-01-18 07:23] LABS: ALBUMIN 2.7 gm/dL (3.4-4.8); CALCIUM 8.5 mg/dL (8.4-10.2); CREATININE, serum 3.39 mg/dL (0.72-1.25); PHOSPHOROUS 2.4 mg/dL (2.3-4.7)
[2022-01-18 07:27] LABS: HEMATOCRIT 29.8 % (42.0-52.0); HEMOGLOBIN 9.3 g/dl (13.5-18.0); MEAN CORPUSCULAR HEMOGLOBIN 33 pg (27-31)
--- NOTE | 2022-01-18 07:30 | NUR ---
PT WAS TAKEN BY PULMONARY OFF THE UNIT FOR AN EEG. NO CONCERNS AT THIS TIME.
--- NOTE | 2022-01-18 07:50 | NUR ---
SPOKE WITH PHARMACY REGARDING PT'S 0900 PO KEPPRA. RECOMMENDED TO HOLD THE MEDICATION UNTIL AFTER DIALYSIS. WILL HOLD PO KEPPRA UNTIL AFTER DIALYSIS TREATMENT.
--- NOTE | 2022-01-18 09:12 | NUR ---
PT RETURNED FROM EEG/MRI TO ROOM. EATING BREAKFAST. ALERT AND ORIENTED X4. DENIES PAIN. ON ROOM AIR. 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 THRILL PALPATED AND BRUIT AUSCULTATED. GENERALIZED MINOR BRUISING ON ARMS AND LEGS. NO EDEMA NOTED. RADIAL PULSE 2+ AND PEDAL PULSES 2+ BILATERALLY. NORMAL HEART SOUNDS AND RYTHYM. REGULAR, UNLABORED RESPIRATIONS. SEMIAUTOMATIC TAPER OPERATOR ON. VERBALIZES NEEDS. PT TRANSFERRED TO IN HOUSE DIALYSIS. ORAL MEDICATIONS ADMINISTERED IN DIALYSIS. ANGELI HELD UNTIL AFTER DIALYSIS TREATMENT. LEFT PT AND PT'S CHART WITH THE DIALYSIS NURSE. NO CONCERNS AT THIS TIME.
--- NOTE | 2022-01-18 12:41 | NUR ---
Patient tolerated hd tx with 700 mL of fluid removed. Next planned HD tx on Friday01/21/22 @ 0800.
[2022-01-18 12:51] VITALS: BP 128/63; PULSE 66; TEMP 97.8
--- NOTE | 2022-01-18 13:05 | NUR ---
PT TAKEN TO MRI FROM DIALYSIS
--- NOTE | 2022-01-18 13:29 | NUR ---
PT RETURNED FROM DIALYSIS AND MRI. VITAL SIGNS RECIEVED FROM DIALYSIS WNL. DIALYSIS NURSE REPORTED 700 ML OFF PT DURING DIALYSIS. DIALYSIS NURSE REPORTED PT HAD 2 LARGE BOWEL MOVEMENTS DURING DIALYSIS. PT BACK IN BED RESTING. WILL NOW ADMINISTER THE HELD PO KEPPRA.
--- NOTE | 2022-01-18 13:53 | NUR ---
SW met with patient to discuss discharge plan. Patient lives at home in [place] with his Nesha ([phone]). Patient is mainly independent with his ADL's but helps with "some" and he utilizes a cane to assist with mobility. Patient has no oxygen needs at home. PCP is Dr. Marrero and he utilizes [facility] for medications. Patient doesn't think he has a DPOA-HC stating his has alway been the "boss". Patient's and two daughters present at bedside. Family agrees that a DPOA-HC is a good thing to establish. Form provided.
--- NOTE | 2022-01-18 15:42 | NUR ---
scrap worker followed up with family after OT. Family questioning about SNF vs. [facility]. Informed the family that due to the patient's dialysis, [facility] wouldn't be an option for him due to transportation. Daughter ask about [facility] in [place]. Informed them that historically they have not provided transportation, but i will look into that as an option. Locally they would like a referral faxed to [facility]. Clinical information faxed to both Arlen at [facility] and Kaylene at [facility]. Kaylene reports that they are open to reviewing the patient but for dialysis they would have to have a strong commitment from them that they would provide transportation. The only opther thing Kaylene would need is a completed DPOA-HC form. Informed her the family has been provided a form and that they should be completing it this weekend. Kaylene states that they do not have transportation on the weekedn so if they were to accept it would be Friday at the earliest. Phone call made to the patient's daughter Cyndy. Daughter reports that her, her and her sister have all been providing transportation to and from dialysis for the patient and that it wouldn't be an issue. Kaylene with [facility] notified of this information. Discharge plan: SNF; Referrals faxed to both [facility] and [facility]
[2022-01-18 16:07] VITALS: BP 147/74; PULSE 83; TEMP 97.6
[2022-01-18 16:12] VITALS: BP 119/53; PULSE 68; TEMP 98
--- NOTE | 2022-01-18 17:46 | NUR ---
PT RESTING IN BED. CONTINUED TO BE AXOX4 THROUGHOUT THE SHIFT. DENIES PAIN. NO ADVERSE EVENTS THROUGHOUT THE SHIFT. VITAL SIGNS STABLE. PT VERBALIZES UNDERSTANDING OF PLAN OF CARE. EDUCATED PT ON MEDICATIONS AND PT VERBALIZED UNDERSTANDING OF MEDICATION PURPOSES. INTAKE IS ADEQUATE. OUTPUT REMAINS WNL. PT COMPLIES WITH CARE. NO CONCERNS AT THIS TIME.
--- NOTE | 2022-01-18 18:17 | NUR ---
LP ORDERED BY DR. BROOKS, ORDERS PLACED PER PROTOCOL
[2022-01-18 20:04] VITALS: BP 117/60; PULSE 67; TEMP 98.4
[2022-01-19] VITALS (7 sets, daily range): BP systolic 116–131; BP diastolic 56–66; PULSE 66–87; TEMP 98–99.3
--- NOTE | 2022-01-19 04:23 | NUR ---
PT HAS HAD SLIGHT AMS INCREASE THIS SHIFT. PT NOT IMPULSIVE OR UNPLESANT, PT HAS REQUIRED REORIENTATIONX2 THIS SHIFT. ALL MEDICATIONS ADMINISTERED ORDERED. ALL NEEDS MET THIS SHIFT. CALL LIGHT WITHIN REACH.
[2022-01-19 06:27] LABS: BASO % 0.3 % (0.0-2.0); EOS # 0.1 K/mm3 (0.0-0.7); EOS % 1.3 % (0.0-4.0); GRAN # 2.6 K/mm3 (1.4-6.5); GRAN % 70.2 % (42.2-75.2); LYMPH # 0.5 K/mm3 (1.2-3.4); LYMPH % 14.1 % (20.0-51.0); MEAN CELL VOLUME 107 fl (80.0-100.0); MEAN CORPUSCULAR HGB CONC 32 g/dl (33.0-37.0); MEAN PLATELET VOLUME 9.8 fl (7.4-10.4); MONO # 0.5 K/mm3 (0.1-0.6); MONO % 13.8 % (1.7-9.3); PLATELET COUNT 75 K/mm3 (130-400); RED BLOOD COUNT 2.93 M/mm3 (4.20-5.60); REDCELL DISTRIBUTION WIDTH-CV 15.7 % (11.5-14.5)
[2022-01-19 06:28] LABS: HEMATOCRIT 31.3 % (42.0-52.0); HEMOGLOBIN 9.9 g/dl (13.5-18.0); MEAN CORPUSCULAR HEMOGLOBIN 34 pg (27-31)
[2022-01-19 06:45] LABS: ALBUMIN 2.5 gm/dL (3.4-4.8); CALCIUM 8.5 mg/dL (8.4-10.2); CREATININE, serum 2.99 mg/dL (0.72-1.25); POTASSIUM 3.8 mmol/L (3.5-4.5)
--- NOTE | 2022-01-19 07:10 | NUR ---
PT PLEASANT, AOX4, BALLOON TESTER EQUAL, PT EAGER FOR BREAKFAST, DIET TRAY ORDERED, FISTULA WITH STRONG BRUIT/THRILL, NO OTHER NEEDS, ASSESSMENT PERFORMED
--- NOTE | 2022-01-19 16:32 | NUR ---
[facility] PCT REPORTS GETTING PT UP TO BEDSIDE COMMODE WITH CANE, PT REPORTS PT WAS VERY UNSTEADY AND HIS L LEG KEPT BUCKLING ON HIM. PT REPORTS THAT LEG HAS BEEN HURTING HIM WITH AMBULATION "FOR ABOUT A WEEK", UNSURE HOW ACCURATE THIS IS EARLIER REPORTED IT WAS DUE TO HIS CANCER.
--- NOTE | 2022-01-19 17:14 | NUR ---
PT PLEASANT, ANSWERS ORIENTATION QUESTIONS APPROPRIATELY BUT DOES MAKE COMMENTS NOT APPROPRIATE FOR CONVERSATION. CALL LIGHT WITHIN REACH, BED ALARM ON, FALL PRECAUTIONS IN PLACE, NO OTHER NEEDS
[2022-01-20 03:31] VITALS: BP 129/62; PULSE 99; TEMP 98.1
--- NOTE | 2022-01-20 05:17 | NUR ---
PT DISPLAYED INCREASED AMS THROUGH OUT NIGHT, IMPULSIVE AT TIMES, EASY TO REORIENT TO PLACE, PERSON. ALL NEEDS MET THIS SHIFT. CALL LIGHT WITHIN REACH.
[2022-01-20 06:30] LABS: EOS % 1.1 % (0.0-4.0); GRAN # 2.6 K/mm3 (1.4-6.5); GRAN % 67.9 % (42.2-75.2); LYMPH # 0.6 K/mm3 (1.2-3.4); LYMPH % 15.6 % (20.0-51.0); MEAN CELL VOLUME 106 fl (80.0-100.0); MEAN CORPUSCULAR HGB CONC 32 g/dl (33.0-37.0); MEAN PLATELET VOLUME 10.6 fl (7.4-10.4); MONO # 0.6 K/mm3 (0.1-0.6); MONO % 15.1 % (1.7-9.3); PLATELET COUNT 80 K/mm3 (130-400); RED BLOOD COUNT 2.69 M/mm3 (4.20-5.60); REDCELL DISTRIBUTION WIDTH-CV 15.6 % (11.5-14.5)
[2022-01-20 06:36] LABS: HEMATOCRIT 28.6 % (42.0-52.0); HEMOGLOBIN 9.1 g/dl (13.5-18.0); MEAN CORPUSCULAR HEMOGLOBIN 34 pg (27-31)
[2022-01-20 06:44] LABS: ALBUMIN 2.5 gm/dL (3.4-4.8); CALCIUM 8.3 mg/dL (8.4-10.2); CREATININE, serum 4.11 mg/dL (0.72-1.25); PHOSPHOROUS 2.2 mg/dL (2.3-4.7); POTASSIUM 3.9 mmol/L (3.5-4.5)
[2022-01-20 07:30] VITALS: BP 131/66; PULSE 69; TEMP 98.8
--- NOTE | 2022-01-20 09:36 | NUR ---
PT SITTING SUPINE IN BED FINISING BREAKFAST. PT STATES THAT HE IS DONE, TRAY WAS REMOVED. PT STATES NO PAIN AT THIS TIME. PT IS A&O X4. PT STATES NO NEEDS AT THIS TIME. SCDS WERE REPLACED AND TURNED ON. CALL LIGHT IS WITHIN REACH.
[2022-01-20 11:07] VITALS: BP 111/48; PULSE 71; TEMP 98.5
--- NOTE | 2022-01-20 12:53 | NUR ---
PT DIALYSIS SCHEDULE IS TUE,MINERVA & SAT. [facility] NEED MORE INFORMATION ON PT DUE TO CANCER TREATMENT.
[2022-01-20 15:09] VITALS: BP 154/67; PULSE 75; TEMP 97.7
--- NOTE | 2022-01-20 16:20 | NUR ---
PT LAYING ON LEFT SIDE ASLEEP ON ROOM AIR. PT HAS NO S/S OF DISTRESS OR PAIN ATT. CALL LIGHT IS WITHIN REACH.
--- NOTE | 2022-01-20 18:28 | NUR ---
PT SITTING UP IN BED WATCHING TV. PT STATES THAT HE DOES NOT NEED ANYTHING OR HAVING ANY PAIN AT THIS TIME. CALL LIGHT IS WITHIN REACH.
[2022-01-20 20:29] VITALS: BP 126/59; PULSE 84; TEMP 98.5
[2022-01-20 23:23] VITALS: BP 124/48; PULSE 71; TEMP 98
[2022-01-21 04:01] VITALS: BP 120/62; PULSE 63; TEMP 97.7
[2022-01-21 06:39] LABS: BASO % 0.3 % (0.0-2.0); EOS # 0.1 K/mm3 (0.0-0.7); EOS % 1.3 % (0.0-4.0); GRAN # 2.8 K/mm3 (1.4-6.5); GRAN % 71.4 % (42.2-75.2); LYMPH # 0.5 K/mm3 (1.2-3.4); LYMPH % 13.6 % (20.0-51.0); MEAN CELL VOLUME 104 fl (80.0-100.0); MEAN CORPUSCULAR HGB CONC 33 g/dl (33.0-37.0); MEAN PLATELET VOLUME 11.1 fl (7.4-10.4); MONO # 0.5 K/mm3 (0.1-0.6); MONO % 13.1 % (1.7-9.3); PLATELET COUNT 84 K/mm3 (130-400); RED BLOOD COUNT 2.86 M/mm3 (4.20-5.60); REDCELL DISTRIBUTION WIDTH-CV 15.4 % (11.5-14.5)
[2022-01-21 06:50] LABS: HEMATOCRIT 29.8 % (42.0-52.0); HEMOGLOBIN 9.7 g/dl (13.5-18.0); MEAN CORPUSCULAR HEMOGLOBIN 34 pg (27-31)
[2022-01-21 06:51] LABS: ALBUMIN 2.6 gm/dL (3.4-4.8); CALCIUM 8.5 mg/dL (8.4-10.2); CREATININE, serum 5.11 mg/dL (0.72-1.25); PHOSPHOROUS 2.7 mg/dL (2.3-4.7); POTASSIUM 4.2 mmol/L (3.5-4.5)
[2022-01-21 07:33] VITALS: BP 117/56; PULSE 64; TEMP 97.4
--- NOTE | 2022-01-21 08:10 | NUR ---
Shift assessment complete. Pt resting in bed. Alert, answers orientation questions appropriately though pt was slow to remember birthdate. Neuros WNL. Heart RRR. Lungs CTA. Assisted pt to restroom and back to bed x1 assist w/gait belt and walker. Denies further needs. Call light in reach. Bed alarm on.
--- NOTE | 2022-01-21 09:41 | NUR ---
Clinical updates sent to [facility] and [facility]
[2022-01-21 12:45] VITALS: BP 137/62; PULSE 69; TEMP 97.8
--- NOTE | 2022-01-21 12:50 | NUR ---
PATIENT TOLERATED HD TX WITH 1.5L OF FLUID REMOVED. NEXT PLANNED HD TX ON Friday01/23/22 @ 0830.
--- NOTE | 2022-01-21 12:59 | NUR ---
First visit from the printing supervisor. No needs right now.
[2022-01-21 15:15] VITALS: BP 125/58; PULSE 66; TEMP 97.7
[2022-01-21 17:12] LABS: CSF APPEARANCE CLEAR; CSF COLOR COLORLESS; CSF MONONUCLEAR 100 % (70-100); CSF POLYMORPHONUCLEAR 0 % (0-6); CSF RBC 27 /mm3 (0-0)
[2022-01-21 20:27] VITALS: BP 117/65; PULSE 67; TEMP 98.5
[2022-01-21 23:49] VITALS: BP 122/65; PULSE 68; TEMP 98.5
[2022-01-22 04:42] VITALS: BP 108/50; PULSE 64; TEMP 97.7
[2022-01-22 07:05] LABS: BASO % 0.3 % (0.0-2.0); EOS # 0.1 K/mm3 (0.0-0.7); EOS % 1.9 % (0.0-4.0); GRAN # 2.1 K/mm3 (1.4-6.5); GRAN % 64.7 % (42.2-75.2); LYMPH # 0.7 K/mm3 (1.2-3.4); LYMPH % 20.6 % (20.0-51.0); MEAN CELL VOLUME 106 fl (80.0-100.0); MEAN CORPUSCULAR HGB CONC 32 g/dl (33.0-37.0); MEAN PLATELET VOLUME 10.5 fl (7.4-10.4); MONO # 0.4 K/mm3 (0.1-0.6); MONO % 12.5 % (1.7-9.3); PLATELET COUNT 87 K/mm3 (130-400); RED BLOOD COUNT 2.87 M/mm3 (4.20-5.60); REDCELL DISTRIBUTION WIDTH-CV 15.2 % (11.5-14.5)
[2022-01-22 07:11] LABS: HEMATOCRIT 30.3 % (42.0-52.0); HEMOGLOBIN 9.7 g/dl (13.5-18.0); MEAN CORPUSCULAR HEMOGLOBIN 34 pg (27-31)
[2022-01-22 07:17] LABS: ALBUMIN 2.5 gm/dL (3.4-4.8); CALCIUM 8.4 mg/dL (8.4-10.2); CREATININE, serum 3.65 mg/dL (0.72-1.25); PHOSPHOROUS 2.4 mg/dL (2.3-4.7); POTASSIUM 4.2 mmol/L (3.5-4.5)
--- NOTE | 2022-01-22 08:00 | NUR ---
Patient seen in the room trying to get up and out of bed. Nurse assisted the patient to the bathroom with walker, gait belt. IV CDI. VSS. Reports pain in left leg, no pain medication requested. No further needs expressed. Call light within reach. Bed alarm on
[2022-01-22 08:17] VITALS: BP 119/58; PULSE 70; TEMP 98.4
[2022-01-22 12:20] VITALS: BP 120/64; PULSE 66; TEMP 97.5
--- NOTE | 2022-01-22 13:13 | NUR ---
Follow up visit from the mechanical service specialist. No needs right now.
--- NOTE | 2022-01-22 13:22 | NUR ---
PIPE spoke with Kaylene at [facility] who states they are able to accept the patient. Message left for the patient's and daughter. Returned phone call to Deanne who feels like the patient will be here for a few more days before he ready, but will speak with Dr. Stafford. Notified Ita of patient's acceptance. Discharge plan: [facility]
[2022-01-22 15:37] VITALS: BP 121/63; PULSE 68; TEMP 97.6
--- NOTE | 2022-01-22 17:30 | NUR ---
Patient laying in bed, did not like the food that was delivered for dinner. Requested a rehab physician snack. IV CDI. VSS. Denies pain and discomfort. No further needs expressed. Call light within reach. Bed alarm on
[2022-01-22 19:37] VITALS: BP 111/54; PULSE 71; TEMP 98.3
--- NOTE | 2022-01-22 21:17 | NUR ---
Patient resting in bed with eyes closed upon enter the room. Patient appears very tired. Patient denies any pain or discomfort. Left arm dialysis site C/D/I. Patient took medications without difficulty. VS stable. Call light in reach. Bed alarms on. Fall precautions maintained.
[2022-01-23 00:12] VITALS: BP 113/61; PULSE 65; TEMP 97.6
[2022-01-23 04:08] VITALS: BP 114/61; PULSE 63; TEMP 98.6
[2022-01-23 07:47] VITALS: BP 116/60; PULSE 65; TEMP 98.2
--- NOTE | 2022-01-23 09:00 | NUR ---
Shift assessment completed. Pt resting in bed, alert, answers all orientation questions appropriately but conversation is confused at times. Neuros otherwise WNL. Pt unsteady on feet, ambulating in room x1 assist w/gait belt and walker. Heart RRR. Lungs CTA. Vitals stable. Denies needs at this time. Call light in reach and bed alarm on.
[2022-01-23] MEDS ORDERED: DEMADEX 20MG20 M1 PO (11:17)
[2022-01-23] MEDS ORDERED: ZOVIRAX 200MG200 MG PO (11:26)
[2022-01-23 11:31] VITALS: BP 116/60; PULSE 65; TEMP 98.2
[2022-01-23 11:39] VITALS: BP 115/62; PULSE 66; TEMP 98.3
--- NOTE | 2022-01-23 11:48 | NUR ---
Discharge orders and clinical updates sent to Kaylene at [facility]. Notifed Kaylene that per Luz BISHOP, that if the patient was to miss dialysis tomorrow due to the weather that his kidney functions are well enough he can hold off until Friday.
[2022-01-23 13:01] LABS: HSV 2 DNA PCR QUAL Not Detected (())
--- NOTE | 2022-01-23 13:45 | NUR ---
Discharge packet given to pt's to take to [facility]. IV to right AC removed w/tip intact. Pt assisted into getting dressed and escorted out via wheelchair to daughter's vehicle to be transported to [facility]. Report called to nurse at [facility] and all questions answered.
== END 2022-01-23 13:45 | DRG 70 ==
LOC: COL.ER 10:00 → MEDICAL 12:56
PROVIDERS: Nurse Practitioner Primary Care; Psychiatry & Neurology Neurology; ADMIT Internal Medicine Nephrology
PROC: 009U3ZX Drainage of Spinal Canal, Percutaneous Approach, Diagnostic (ICD-10-PCS; principal; 2022-01-17)
PROC: 5A1D70Z Performance of Urinary Filtration, Intermittent, Less than 6 Hours Per Day (ICD-10-PCS; 2022-01-17)
DX: G93.41 Metabolic encephalopathy (principal); N18.6 End stage renal disease; E43 Unspecified severe protein-calorie malnutrition; C90.00 Multiple myeloma not having achieved remission; N25.81 Secondary hyperparathyroidism of renal origin; E85.9 Amyloidosis, unspecified; I25.10 Atherosclerotic heart disease of native coronary artery without angina pectoris; M10.9 Gout, unspecified; E78.5 Hyperlipidemia, unspecified; E03.9 Hypothyroidism, unspecified; D63.1 Anemia in chronic kidney disease; K21.9 Gastro-esophageal reflux disease without esophagitis; F31.9 Bipolar disorder, unspecified; M19.90 Unspecified osteoarthritis, unspecified site; G62.9 Polyneuropathy, unspecified; I48.91 Unspecified atrial fibrillation; D69.59 Other secondary thrombocytopenia; F03.90 Unspecified dementia, unspecified severity, without behavioral disturbance, psychotic disturbance, mood disturbance, and anxiety; Z20.822 Contact with and (suspected) exposure to COVID-19; Z99.2 Dependence on renal dialysis; Z87.891 Personal history of nicotine dependence; Z68.23 Body mass index [BMI] 23.0-23.9, adult; Z23 Encounter for immunization
CPT/HCPCS: J1644; J7030; Q5105

== ENCOUNTER 2022-02-01 22:22 | Emergency (ER) | payer MEDICARE ==
[~2022-02-01] VITALS: Ht 167.6 cm; Wt 72.7 kg
[2022-02-01 22:25] VITALS: TEMP 98.1
[2022-02-02 01:20] VITALS: BP 130/81; PULSE 88
== END 2022-02-02 01:25 | disposition home or self-care (01) ==
LOC: COL.ER 22:22
DX: S70.02XA Contusion of left hip, initial encounter (principal); N18.6 End stage renal disease; D63.1 Anemia in chronic kidney disease; Z99.2 Dependence on renal dialysis; W06.XXXA Fall from bed, initial encounter